=== PATIENT | female | born 1965 | race Caucasian/White ===

== ENCOUNTER → 2019-06-17 | Outpatient (REF) | payer OTHER ==
[2019-06-20 14:10] LABS: HPV HYBRID CAPTURE II Negative (Negative)
== END ==
LOC: M LAB LCGH 11:54
PROVIDERS: ATTEND Physician Assistant
DX: Z12.4 Encounter for screening for malignant neoplasm of cervix (principal)

== ENCOUNTER → 2019-09-20 | Outpatient (REF) | payer OTHER | LOC: M LAB LCGH 15:27 | PROVIDERS: ATTEND Surgery | DX: Z01.818 Encounter for other preprocedural examination (principal); L98.499 Non-pressure chronic ulcer of skin of other sites with unspecified severity; L02.91 Cutaneous abscess, unspecified; S60.851A Superficial foreign body of right wrist, initial encounter; X58.XXXA Exposure to other specified factors, initial encounter; Y92.9 Unspecified place or not applicable; Y93.9 Activity, unspecified; Y99.9 Unspecified external cause status ==

== ENCOUNTER → 2021-08-21 | Outpatient (CLI) | payer OTHER ==
[~2021-08-21] MED LIST: LISI2.5T9 PO
== END ==
LOC: M LABSMTC 11:42
PROVIDERS: ATTEND Anesthesiology
DX: Z01.812 Encounter for preprocedural laboratory examination (principal); Z20.822 Contact with and (suspected) exposure to COVID-19

== ENCOUNTER 2021-08-26 11:47 | Day surgery (SDC) | payer OTHER ==
[~2021-08-26] VITALS: Ht 152.4 cm; Wt 57.2 kg
[~2021-08-26 11:47] MED LIST changes: +NS 1,000 ML IV ONE
--- OUTSIDE RECORDS SUMMARY | 2021-08-26 11:58 | CCD ---
Author Author [facility] Organization [facility] Address Unknown Phone Unavailable Care Team Providers Care Mixing Picker Tender Name Role Phone Fede Pineda MD Unavailable Unavailable Fede Pineda MD Unavailable Unavailable Fede Pineda MD Unavailable Unavailable Fede Pineda MD Unavailable Unavailable Fede Pineda MD Unavailable Unavailable Fede Pineda MD Unavailable Unavailable Fede Pineda MD Unavailable Unavailable Fede Pineda MD Unavailable Unavailable Fede Pineda MD Unavailable Unavailable Fede Pineda MD Unavailable Unavailable Fede Pineda MD Unavailable Unavailable Fede Pineda MD Unavailable Unavailable Fede Pineda MD Unavailable Unavailable Fede Pienda MD Unavailable Unavailable Fede Pineda MD Unavailable Unavailable Fede Pineda MD Unavailable Unavailable Fede Pineda MD Unavailable Unavailable Fede Pineda MD Unavailable Unavailable Fede Pineda MD Unavailable Unavailable Fede Pineda MD Unavailable Unavailable Fede Pineda MD Unavailable Unavailable Padalino, Fede Miranda MD Unavailable Unavailable Padalino, Fede Miranda MD Unavailable Unavailable Padalino, Fede Miranda MD Unavailable Unavailable Padalino, Fede Miranda MD Unavailable Unavailable Padalino, Fede Miranda MD Unavailable Unavailable Padalino, Fede Miranda MD Unavailable Unavailable Padalino, Fede Miranda MD Unavailable Unavailable Padalino, Fede Miranda MD Unavailable Unavailable Padalino, Fede Miranda MD Unavailable Unavailable Padalino, Fede Miranda MD Unavailable Unavailable Padalino, Fede Miranda MD Unavailable Unavailable Padalino, Fede Miranda MD Unavailable Unavailable Padalino, Fede Miranda MD Unavailable Unavailable Padalino, Fede Miranda MD Unavailable Unavailable Padalino, Fede Miranda MD Unavailable Unavailable Padalino, Fede Miranda MD Unavailable Unavailable Padalino, Fede Miranda MD Unavailable Unavailable Padalino, Fede Miranda MD Unavailable Unavailable Padalino, Fede Miranda MD Unavailable Unavailable Padalino, Fede Miranda MD Unavailable Unavailable Padalino, Fede Miranda MD Unavailable Unavailable Padalino, Fede Miranda MD Unavailable Unavailable Padalino, Fede Miranda MD Unavailable Unavailable Padalino, Fede Miranda MD Unavailable Unavailable Padalino, Fede Miranda MD Unavailable Unavailable Padalino, Fede Miranda MD Unavailable Unavailable Padalino, Fede Miranda MD Unavailable Unavailable Padalino, Fede Miranda MD Unavailable Unavailable Padalino, Fede Miranda MD Unavailable Unavailable Padalino, Fede Miranda MD Unavailable Unavailable Padalino, Fede Miranda MD Unavailable Unavailable Padalino, Fede Miranda MD Unavailable Unavailable Padalino, Fede Miranda MD Unavailable Unavailable Padalino, Fede Miranda MD Unavailable Unavailable Padalino, Fede Miranda MD Unavailable Unavailable Padalino, Fede Miranda MD Unavailable Unavailable Padalino, Fede Miranda MD Unavailable Unavailable Padalino, Fede Miranda MD Unavailable Unavailable Padalino, Fede Miranda MD Unavailable Unavailable Padalino, Fede Miranda MD Unavailable Unavailable Padalino, Fede Miranda MD Unavailable Unavailable Padalino, Fede Miranda MD Unavailable Unavailable Padalino, Fede Miranda MD Unavailable Unavailable Padalino, Fede Miranda MD Unavailable Unavailable Padalino, Fede Miranda MD Unavailable Unavailable Padalino, Fede Miranda MD Unavailable Unavailable Padalino, Fede Miranda MD Unavailable Unavailable Padalino, Fede Miranda MD Unavailable Unavailable Padalino, Fede Miranda MD Unavailable Unavailable Padalino, Fede Miranda MD Unavailable Unavailable Padalino, Fede Miranda MD Unavailable Unavailable Padalino, Fede Miranda MD Unavailable Unavailable Padalino, Fede Miranda MD Unavailable Unavailable Padalino, Fede Miranda MD Unavailable Unavailable Padalino, Fede Miranda MD Unavailable Unavailable Padalino, Fede Miranda MD Unavailable Unavailable Padalino, Fede Ruben MD Unavailable Unavailable Diggs, Tatiana PA Unavailable Unavailable Diggs, Tatiana PA Unavailable Unavailable Diggs, Tatiana PA Unavailable Unavailable Diggs, Tatiana PA Unavailable Unavailable Diggs, Tatiana PA Unavailable Unavailable Diggs, Tatiana PA Unavailable Unavailable Diggs, Tatiana PA Unavailable Unavailable Diggs, Tatiana PA Unavailable Unavailable Diggs, Tatiana PA Unavailable Unavailable Diggs, Tatiana PA Unavailable Unavailable Diggs, Tatiana PA Unavailable Unavailable Diggs, Tatiana PA Unavailable Unavailable Diggs, Tatiana PA Unavailable Unavailable Diggs, Tatiana PA Unavailable Unavailable Diggs, Tatiana PA Unavailable Unavailable Diggs, Tatiana PA Unavailable Unavailable Diggs, Tatiana PA Unavailable Unavailable Diggs, Tatiana PA Unavailable Unavailable Diggs, Tatiana PA Unavailable Unavailable Diggs, Tatiana PA Unavailable Unavailable Diggs, Tatiana PA Unavailable Unavailable Diggs, Tatiana PA Unavailable Unavailable Diggs, Tatiana PA Unavailable Unavailable Diggs, Tatiana PA Unavailable Unavailable Diggs, Tatiana PA Unavailable Unavailable Diggs, Tatiana PA Unavailable Unavailable Diggs, Tatiana PA Unavailable Unavailable Diggs, Tatiana PA Unavailable Unavailable Diggs, Tatiana PA Unavailable Unavailable Diggs, Tatiana PA Unavailable Unavailable Diggs, Tatiana PA Unavailable Unavailable Diggs, Tatiana PA Unavailable Unavailable Diggs, Tatiana PA Unavailable Unavailable Diggs, Tatiana PA Unavailable Unavailable Diggs, Tatiana PA Unavailable Unavailable Diggs, Tatiana PA Unavailable Unavailable Diggs, Tatiana PA Unavailable Unavailable Diggs, Tatiana PA Unavailable Unavailable Diggs, Tatiana PA Unavailable Unavailable Diggs, Tatiana PA Unavailable Unavailable Diggs, Tatiana PA Unavailable Unavailable Gilberto Alegria MD Unavailable Unavailable Gilberto Alegria MD Unavailable Unavailable Gilberto Alegria MD Unavailable Unavailable Gilberto Alegria MD Unavailable Unavailable Gilberto Alegria MD Unavailable Unavailable Gilberto Alegria MD Unavailable Unavailable Gilberto Alegria MD Unavailable Unavailable Gilberto Alegria MD Unavailable Unavailable Gilberto Alegria MD Unavailable Unavailable Gilberto Alegria MD Unavailable Unavailable Gilberto Alegria MD Unavailable Unavailable Gilberto Alegria MD Unavailable Unavailable Gilberto Alegria MD Unavailable Unavailable Gilberto Alegria MD Unavailable Unavailable Gilberto Alegria MD Unavailable Unavailable Airam, E Ca MD Unavailable Unavailable Airam, E Ca MD Unavailable Unavailable Airam, E Ca MD Unavailable Unavailable Airam, E Ca MD Unavailable Unavailable Airam, E Ca MD Unavailable Unavailable Airam, E Ca MD Unavailable Unavailable Airam, E Ca MD Unavailable Unavailable Airam, E Ca MD Unavailable Unavailable Airam, E Ca MD Unavailable Unavailable Airam, E Ca MD Unavailable Unavailable Airam, E Ca MD Unavailable Unavailable Airam, E Ca MD Unavailable Unavailable Airam, E Ca MD Unavailable Unavailable Airam, E Ca MD Unavailable Unavailable Airam, E Ca MD Unavailable Unavailable Airam, E Ca MD Unavailable Unavailable Airam, E Ca MD Unavailable Unavailable Airam, E Ca MD Unavailable Unavailable Airam, E Ca MD Unavailable Unavailable Airam, E Ca MD Unavailable Unavailable Airam, E Ca MD Unavailable Unavailable Airam, E Ca MD Unavailable Unavailable Airam, E Ca MD Unavailable Unavailable Airam, E Ca MD Unavailable Unavailable Airam, E Ca MD Unavailable Unavailable Airam, E Ac MD Unavailable Unavailable Airam, E Ca MD Unavailable Unavailable Airam, E Ca MD Unavailable Unavailable Airam, E Ca MD Unavailable Unavailable Airam, E Ca MD Unavailable Unavailable Airam, E Ca MD Unavailable Unavailable Airam, E Ca MD Unavailable Unavailable Airam, E Ca MD Unavailable Unavailable Airam, E Ca MD Unavailable Unavailable Airam, E Ca MD Unavailable Unavailable Airam, E Ca MD Unavailable Unavailable Airam, E Ca MD Unavailable Unavailable Airam, E Ca MD Unavailable Unavailable Airam, E Ca MD Unavailable Unavailable Airam, E Ca MD Unavailable Unavailable Diggs, Tatiana PA Unavailable Unavailable Diggs, Tatiana PA Unavailable Unavailable Diggs, Tatiana PA Unavailable Unavailable Diggs, Tatiana PA Unavailable Unavailable Diggs, Tatiana PA Unavailable Unavailable Diggs, Tatiana PA Unavailable Unavailable Diggs, Tatiana PA Unavailable Unavailable Diggs, Tatiana PA Unavailable Unavailable Diggs, Tatiana PA Unavailable Unavailable Diggs, Tatiana PA Unavailable Unavailable Diggs, Tatiana PA Unavailable Unavailable Diggs, Tatiana PA Unavailable Unavailable Diggs, Tatiana PA Unavailable Unavailable Diggs, Tatiana PA Unavailable Unavailable Diggs, Tatiana PA Unavailable Unavailable Diggs, Tatiana PA Unavailable Unavailable Diggs, Tatiana PA Unavailable Unavailable Diggs, Tatiana PA Unavailable Unavailable Diggs, Tatiana PA Unavailable Unavailable Diggs, Tatiana PA Unavailable Unavailable Diggs, Tatiana PA Unavailable Unavailable Diggs, Tatiana PA Unavailable Unavailable Diggs, Tatiana PA Unavailable Unavailable Diggs, Tatiana PA Unavailable Unavailable Diggs, Tatiana PA Unavailable Unavailable Diggs, Tatiana PA Unavailable Unavailable Diggs, Tatiana PA Unavailable Unavailable Diggs, Tatiana PA Unavailable Unavailable Diggs, Tatiana PA Unavailable Unavailable Diggs, Tatiana PA Unavailable Unavailable Diggs, Tatiana PA Unavailable Unavailable Diggs, Tatiana PA Unavailable Unavailable Diggs, Tatiana PA Unavailable Unavailable Diggs, Tatiana PA Unavailable Unavailable Diggs, Tatiana PA Unavailable Unavailable Diggs, Tatiana PA Unavailable Unavailable Diggs, Tatiana PA Unavailable Unavailable Diggs, Tatiana PA Unavailable Unavailable Diggs, Tatiana PA Unavailable Unavailable Diggs, Tatiana PA Unavailable Unavailable Diggs, Tatiana PA Unavailable Unavailable Padalino, Fede Miranda MD Unavailable Unavailable Padalino, Fede Miranda MD Unavailable Unavailable Padalino, Fede Miranda MD Unavailable Unavailable Padalino, Fede Miranda MD Unavailable Unavailable Padalino, Fede Miranda MD Unavailable Unavailable Padalino, Fede Miranda MD Unavailable Unavailable Padalino, Fede Miranda MD Unavailable Unavailable Padalino, Fede Miranda MD Unavailable Unavailable Padalino, Fede Miranda MD Unavailable Unavailable Padalino, Fede Miranda MD Unavailable Unavailable Padalino, Fede Miranda MD Unavailable Unavailable Padalino, Fede Miranda MD Unavailable Unavailable Padalino, Fede Miranda MD Unavailable Unavailable Padalino, Fede Miranda MD Unavailable Unavailable Padalino, Fede Miranda MD Unavailable Unavailable Padalino, Fede Miranda MD Unavailable Unavailable Padalino, Fede Miranda MD Unavailable Unavailable Padalino, Fede Miranda MD Unavailable Unavailable Padalino, Fede Miranda MD Unavailable Unavailable Padalino, Fede Miranda MD Unavailable Unavailable Padalino, Fede Miranda MD Unavailable Unavailable Padalino, Fede Miranda MD Unavailable Unavailable Padalino, Fede Miranda MD Unavailable Unavailable Padalino, Fede Miranda MD Unavailable Unavailable Padalino, Fede Miranda MD Unavailable Unavailable Padalino, Fede Miranda MD Unavailable Unavailable Padalino, Fede Miranda MD Unavailable Unavailable Padalino, Fede Miranda MD Unavailable Unavailable Padalino, Fede Miranda MD Unavailable Unavailable Padalino, Fede Miranda MD Unavailable Unavailable Padalino, Fede Miranda MD Unavailable Unavailable Padalino, Fede Miranda MD Unavailable Unavailable Padalino, Fede Miranda MD Unavailable Unavailable Padalino, Fede Miranda MD Unavailable Unavailable Padalino, Fede Miranda MD Unavailable Unavailable Padalino, Fede Miranda MD Unavailable Unavailable Padalino, Fede Miranda MD Unavailable Unavailable Padalino, Fede Miranda MD Unavailable Unavailable Padalino, Fede Miranda MD Unavailable Unavailable Padalino, Fede Miranda MD Unavailable Unavailable Padalino, Fede Miranda MD Unavailable Unavailable Padalino, Fede Miranda MD Unavailable Unavailable Padalino, Fede Miranda MD Unavailable Unavailable Padalino, Fede Miranda MD Unavailable Unavailable Padalino, Fede Miranda MD Unavailable Unavailable Padalino, Fede Miranda MD Unavailable Unavailable Padalino, Fede Miranda MD Unavailable Unavailable Padalino, Fede Miranda MD Unavailable Unavailable Padalino, Fede Miranda MD Unavailable Unavailable Padalino, Fede Miranda MD Unavailable Unavailable Padalino, Fede Miranda MD Unavailable Unavailable Padalino, Fede Miranda MD Unavailable Unavailable Padalino, Fede Miranda MD Unavailable Unavailable Padalino, Fede Miranda MD Unavailable Unavailable Padalino, Fede Miranda MD Unavailable Unavailable Padalino, Fede Miranda MD Unavailable Unavailable Padalino, Fede Miranda MD Unavailable Unavailable Padalino, Fede Miranda MD Unavailable Unavailable Padalino, Fede Miranda MD Unavailable Unavailable Padalino, Fede Miranda MD Unavailable Unavailable Padalino, Fede Miranda MD Unavailable Unavailable Padalino, Fede Miranda MD Unavailable Unavailable Padalino, Fede Miranda MD Unavailable Unavailable Padalino, Fede Miranda MD Unavailable Unavailable Padalino, Fede Miranda MD Unavailable Unavailable Padalino, Fede Miranda MD Unavailable Unavailable Padalino, Fede Miranda MD Unavailable Unavailable Padalino, Fede Miranda MD Unavailable Unavailable Padalino, Fede Miranda MD Unavailable Unavailable Padalino, Fede Miranda MD Unavailable Unavailable Padalino, Fede Miranda MD Unavailable Unavailable Padalino, Fede Miranda MD Unavailable Unavailable Padalino, Fede Miranda MD Unavailable Unavailable Padalino, Fede Miranda MD Unavailable Unavailable Padalino, Fede Miranda MD Unavailable Unavailable Padalino, Fede Miranda MD Unavailable Unavailable Padalino, Fede Miranda MD Unavailable Unavailable Padalino, Fede Miranda MD Unavailable Unavailable STACEY, 0000{ Unavailable Unavailable ANTON Bell Unavailable Unavailable Re-disclosure Warning The records that you are about to access may contain information from federally-assisted alcohol or drug abuse programs. If such information is present, then the following federally mandated warning applies: This information has been disclosed to you from records protected by federal confidentiality rules (42 CFR part 2). The federal rules prohibit you from making any further disclosure of this information unless further disclosure is expressly permitted by the written consent of the person to whom it pertains or as otherwise permitted by 42 CFR part 2. A general authorization for the release of medical or other information is NOT sufficient for this purpose. The Federal rules restrict any use of the information to criminally investigate or prosecute any alcohol or drug abuse patient.The records that you are about to access may contain highly sensitive health information, the redisclosure of which is protected by Article 27-F of the [facility] Public Health law. If you continue you may have access to information: Regarding HIV / AIDS; Provided by facilities licensed or operated by the [facility] Office of Mental Health; or Provided by the [facility] Office for People With Developmental Disabilities. If such information is present, then the following [facility] mandated warning applies: This information has been disclosed to you from confidential records which are protected by state law. State law prohibits you from making any further disclosure of this information without the specific written consent of the person to whom it pertains, or as otherwise permitted by law. Any unauthorized further disclosure in violation of state law may result in a fine or shelter sentence or both. A general authorization for the release of medical or other information is NOT sufficient authorization for further disc losure. Allergies and Adverse Reactions Type Description Substance Reaction Status Data Source(s ) Allergy to substance No Known Allergies No known allergies (situation ) [place] ([facility]) Family History Family Member Name Family Member Gender Family Member Status Date o f Status Description Data Source(s) Unknown Unknown Problem [facility] ([facility]) Unknown Female Problem [facility] ([facility] ) Encounters Encounter Providers Location Date Indications Data Source(s ) Outpatient Attender: Tatiana MUNGUIA 08/03/2021 02: 56:00 PM EDT SCREENING; DENSE TISSUE C Z12.31 [facility] SCREENING; DENSE TISSUE C Z12.31 Outpatient Attender: Tatiana MUNGUIA 06/28/2021 03:00:00 PM EDT [facility] Outpatient Attender: Tatiana MUNGUIA 06/21/2021 03: 50:00 PM EDT PAIN IN LT SHOULDER [facility] PAIN IN LT SHOULDER <td ID="encounterTypeDescriptionID0">OLE UAL PE-followup exam/</td><td>Tatiana Diggs [facility]</td><td>[facility]</td><td>06/21/2021</td><td>2:40PM</td><td>3:38PM</td><td><content ID="encounterDiagnosisID0-0">Essential Hypertension</content>, <content ID="encounterDiagnosisID0-1">Routine History and Physical Adult (18 - 64 Yrs)</content>, <content ID="encounterDiagnosisID0-2">Perimenopause</content>, <content ID="encounterDiagnosisID0-3">Shoulder Strain Deltoid Muscle</content></td>Outpatient Attender: Tatiana Diggs [facility], [facility] 06/21/2021 02:40:00 PM EDT - 06/21/2021 03:38:00 PM ED T Shoulder Strain Deltoid MusclePerimenopauseRoutine History and Physical Adult (18 - 64 Yrs)Essential Hypertension [place] ([facility]) Shoulder Strain Deltoid Muscle Perimenopause Routine History and Physical Adult (18 - 64 Yrs) Essential Hypertension Outpatient<td ID="encounterTypeDescripti onID1">sick visit</td><td>Ca Alegria MD</td><td>[facility]</td><td>11/02/2020</td><td>3:43PM</td><td>4:23PM</td><td><content ID="encounterDiagnosisID1-0">Mycoplasma Pneumoniae (Primary Atypical)</content></td> Attender: Ca Alegria MD [facility] 11/02/2020 03:43:00 PM EST - 11/02/2020 04:23:00 PM ES T Mycoplasma Pneumoniae (Primary Atypical) [place] ([facility]) Mycoplasma Pneumoniae (Primary Atypical) Outpatient Attender: Ruben Pineda MD [facility] 09/22/2020 02:00:00 PM EST [facility] ([facility]) Outpatient Attender: 0000{ STACEY 09/22/2020 01:42:00 PM E [facility] Outpatient Attender: Ruben Pineda MD 09/22/2020 01 :42:00 PM EST CEREBRAL ANEURYSM, NONRUPTURED [facility] CEREBRAL ANEURYSM, NONRUPTURED Outpatient Attender: Tatiana BHATttender: Naz shaffer 07/10/2020 02:19:00 PM EDT SCREENING DENSE [facility] SCREENING DENSE Medications Medication Brand Name Start Date Product Form Dose Route Admi nistrative Instructions Pharmacy Instructions Status Indications Reaction Description Data Source(s) 2.5 mg 05/04/2021 12:00:00 AM EDT tablet 30 TAKE ONE TABLET BY MOUTH EVERY DAY TAKE ONE TABLET BY MOUTH EVERY DAY SOLD: 08/16/2021 [facility] 2.5 mg 05/04/2021 12:00:00 AM EDT tablet 30 TAKE ONE TABLET BY MOUTH EVERY DAY TAKE ONE TABLET BY MOUTH EVERY DAY SOLD: 05/10/2021 [facility] 2.5 mg 05/04/2021 12:00:00 AM EDT tablet 30 TAKE ONE TABLET BY MOUTH EVERY DAY TAKE ONE TABLET BY MOUTH EVERY DAY SOLD: 07/12/2021 [facility] 2.5 mg 05/04/2021 12:00:00 AM EDT tablet 30 TAKE ONE TABLET BY MOUTH EVERY DAY TAKE ONE TABLET BY MOUTH EVERY DAY SOLD: 06/09/2021 [facility] Lisinopril 2.5 MG Oral Tablet Lisinopril 2.5 MG Oral Tablet 05/03/2021 12:00:00 AM EDT 1 active lisinopril 2.5 MG Oral Tablet [place] [facility] Azithromycin 250 MG Oral Tablet Azithromycin 250 MG Oral Tab let 11/02/2020 12:00:00 AM EST completed azith romycin 250 MG Oral Tablet [place] [facility] 250 mg 11/02/2020 12:00:00 AM EST tablet 6 TAKE TWO TABLETS BY MOUTH AT ONCE ON THE FIRST DAY THEN TAKE ONE DAILY THEREAFTER TAKE TWO TABLETS BY MOUTH AT ONCE ON THE FIRST DAY THEN TAKE ONE DAILY THEREAFTER SOLD: 11/02/2020 [facility] Lisinopril 2.5 MG Oral Tablet Lisinopril 2.5 MG Oral Tablet 10/23/2020 12:00:00 AM EST 1 aborted lisinopril 2.5 M G Oral Tablet [place] ([facility]) 2.5 mg 10/23/2020 12:00:00 AM EST tablet 30 TAKE ONE TABLET BY MOUTH EVERY DAY TAKE ONE TABLET BY MOUTH EVERY DAY SOLD: 04/06/2021 [facility] 2.5 mg 10/23/2020 12:00:00 AM EST tablet 30 TAKE ONE TABLET BY MOUTH EVERY DAY TAKE ONE TABLET BY MOUTH EVERY DAY SOLD: 03/09/2021 [facility] 2.5 mg 10/23/2020 12:00:00 AM EST tablet 30 TAKE ONE TABLET BY MOUTH EVERY DAY TAKE ONE TABLET BY MOUTH EVERY DAY SOLD: 01/02/2021 [facility] 2.5 mg 10/23/2020 12:00:00 AM EST tablet 30 TAKE ONE TABLET BY MOUTH EVERY DAY TAKE ONE TABLET BY MOUTH EVERY DAY SOLD: 11/30/2020 [facility] 2.5 mg 10/23/2020 12:00:00 AM EST tablet 30 TAKE ONE TABLET BY MOUTH EVERY DAY TAKE ONE TABLET BY MOUTH EVERY DAY SOLD: 10/27/2020 [facility] 2.5 mg 10/23/2020 12:00:00 AM EST tablet 30 TAKE ONE TABLET BY MOUTH EVERY DAY TAKE ONE TABLET BY MOUTH EVERY DAY SOLD: 02/04/2021 [facility] Lisinopril 2.5 MG Oral Tablet Lisinopril 2.5 MG Oral Tablet 04/15/2020 12:00:00 AM EDT 1 aborted lisinopril 2.5 M G Oral Tablet [place] ([facility]) 2.5 mg 04/15/2020 12:00:00 AM EDT tablet 30 TAKE ONE TABLET BY MOUTH EVERY DAY TAKE ONE TABLET BY MOUTH EVERY DAY SOLD: 07/21/2020 [facility] 2.5 mg 04/15/2020 12:00:00 AM EDT tablet 30 TAKE ONE TABLET BY MOUTH EVERY DAY TAKE ONE TABLET BY MOUTH EVERY DAY SOLD: 08/18/2020 [facility] 2.5 mg 04/15/2020 12:00:00 AM EDT tablet 30 TAKE ONE TABLET BY MOUTH EVERY DAY TAKE ONE TABLET BY MOUTH EVERY DAY SOLD: 09/26/2020 [facility] Insurance Providers Payer name Policy type / Coverage type Policy ID Covered constitution party ID Covered constitution party's relationship to lomeli Policy Lomeli Plan Information [employer] U [id number] Self [id number] TAWANDA I [id number] Self [id number] [place] [id number] S [id number] Commercial [id number] Self [id number] [employer] Commercial [id number] Self [id number] Self Pay Commercial [id number] Self [id number] UNAVAILABLE UNAVAILA BLE SELF PAY ONLY [id number] SP [id number] [id number]US [id number] SP [id number] [facility] O [id number] S [id number] [place] [id number] SP [id number] O [id number] S [id number] TAWANDA CARE HEA [id number] S [id number] Problems, Conditions, and Diagnoses No Information Surgeries/Procedures Procedure Description Date Indications Data Source(s) Venipuncture (routine) Venipuncture (routine) 07/20/2020 12:00:00 A M [facility] ([facility]) CBC CBC 07/20/2020 12:00:00 AM EDT [facility] ([facility]) CMP-Complete Metabolic Profile CMP-Complete Metabolic Profil e 07/20/2020 12:00:00 AM [facility] Fasting Lipid Profile Fasting Lipid Profile 07/20/2020 12:00:00 AM [facility] ([facility]) Free T4- Free Thryoxine Free T4- Free Thryoxine 07/20/2020 12:00: 00 AM [facility] ([facility]) TSH- Thyroid Stimulating Hormone TSH- Thyroid Stimulating Ho rmone 07/20/2020 12:00:00 AM EDT [place] ([facility]) Results ID Date Data Source [id number] 08/19/2021 12:48:00 PM EST Clinical Ente anthony Boateng Name Value Range Interpretation Code Description Data Arelis rce(s) Supporting Document(s) SARS-CoV-2 RT-PCR Pooled ID [id number] Cl [employer] [facility] SARS CoV-2 RT-PCR MONTSE Negative Negative [facility] [employer] Your result is "Negative". This means th e virus that causes COVID-19 was not found in your sample. A test result that says "Negative" for asample collected while a person has COVID-19 related symptoms usually means that COVID-19 did not cause your symptoms. There may be other causes of your symptoms that require treatment. It is also possible that this result is not correct (it could be a false negative). Followup with your healthcare provider to interpret and consider the test result together with all other aspects of your personal and medical history, such as symptoms, possible exposures, geographical location of places you have recently traveled, and other factors, in deciding how to care for you. It is important that you work with your healthcare provider to help you understand the next steps you should take. This test has been authorized only for the detection of RNA kjrvVKDS-FqM-5 virus and diagnosis of SARS-CoV-2 virus infection, not for any other viruses or pathogens. This test is only authorized for the duration of the declaration that circumstances exist justifying the authorization of the emergency use of in vitro diagnostic tests for detection of SARS-CoV-2 virus and/or diagnosis of SARS-CoV-2 virus infection under section 564(b)(1) of the Act, 21 U.S.C. section 360bbb-3(b)(1), unless the authorization is terminated or revoked sooner. We will continue to follow federal and state requirements for both notification of results and any confirmatory testing that is required by another agency. This test was developed and its performance characteristics determined by [employer] [facility]. It has notbeen cleared or approved by the U.S. Food and Drug Administration for diagnostic use. This test has been authorized by FDA under an EUA for use by authorized laboratories. Results should be used in conjunction with clinical findings, and should not form the sole basis for a diagnosis or treatment decision. ID Date Data Source [id number] 08/13/2021 07:14:00 AM EDT [facility] Name Value Range Interpretation Code Description Data Arelis rce(s) Supporting Document(s) VC SARS CoV-2 RT-PCR [facility] Negative Negative [facility] Your result is "Negative". This means th e virus that causes COVID-19 was not found in your sample. A test result that says "Negative" for asample collected while a person has COVID-19 related symptoms usually means that COVID-19 did not cause your symptoms. There may be other causes of your symptoms that require treatment. It is also possible that this result is not correct (it could be a false negative). Followup with your healthcare provider to interpret and consider the test result together with all other aspects of your personal and medical history, such as symptoms, possible exposures, geographical location of places you have recently traveled, and other factors, in deciding how to care for you. It is important that you work with your healthcare provider to help you understand the next steps you should take. This test has been authorized only for the detection of RNA ojrfWVPC-WiS-2 virus and diagnosis of SARS-CoV-2 virus infection, not for any other viruses or pathogens. This test is only authorized for the duration of the declaration that circumstances exist justifying the authorization of the emergency use of in vitro diagnostic tests for detection of SARS-CoV-2 virus and/or diagnosis of SARS-CoV-2 virus infection under section 564(b)(1) of the Act, 21 U.S.C. section 360bbb-3(b)(1), unless the authorization is terminated or revoked sooner. We will continue to follow federal and state requirements for both notification of results and any confirmatory testing that is required by another agency. This test was developed and its performance characteristics determined by [facility]. It has notbeen cleared or approved by the U.S. Food and Drug Administration for diagnostic use. This test has been authorized by FDA under an EUA for use by authorized laboratories. Results should be used in conjunction with clinical findings, and should not form the sole basis for a diagnosis or treatment decision. ID Date Data Source [id number] 08/09/2021 11:10:00 AM EDT [facility] Name Value Range Interpretation Code Description Data Arelis rce(s) Supporting Document(s) SARS-CoV-2 (COVID-19) N gene [Presence] in Respiratory specimen by LEIA with probe detection NEGATIVE [facility] This lab was ordered by [employer] [facility] a nd reported by [employer]. ID Date Data Source [id number] 08/03/2021 03:37:[address] [facility] [address] [place] [address] [phone] NAME SEX PT STATUS ACCOUNT NUMBER Anabel Coker REG REF [id number] ORDERING PHYSICIAN LOCATION MEDICAL RECORD NO. Tatiana Diggs MAMMO [id number] ATTENDING PHYSICIAN DATE OF DATE OF EXAM/TIME Ronan Man MD 1965 08/03/211533 TYPE / EXAM US Breast - Complete Bilat REASON FOR EXAM DENSE TISSUE BILATERAL ABVS 3D SCREENING ULTRASOUND CLINICAL HISTORY: [facility] DENSE TISSUE COMPARISON: July 10, 2020. FINDINGS: Heterogeneous fibroglandular background echotexture is seen. 2 cysts are identified. There is a 0.5cm cyst in the 4:00 position of the left breast, 3.2 cm from the nipple. In the right breast, 4.6 cm from the nipple, there is a oval-shaped 0.6 x 0.6 x 0.4 cm cyst. IMPRESSION: No sonographic evidence of malignancy. OVERALL FINAL ASSESSMENT OF FINDINGS BI-RADS 2 - Benign findings Reported By Hermelindo Yoon MD on 08/03/211536 Signed By Hermelindo Yoon MD on 08/03/211538 Date Time CC: Hermelindo Yoon M.D.; Ronan Man MD Techn: CARAI Trans Dt/Tm: Trans by: DT Prt Dt/Tm: 25: Total DLP = 0.00 mGy-cm : Total Radiation Dose = 0.0000 mSv Lifetime Dose: 0 mSv Name Value Range Interpretation Code Description Data Arelis rce(s) Supporting Document(s) ID Date Data Source [id number] 08/03/2021 03:33:[address] [facility] [address] [place] [address] [phone] NAME SEX PT STATUS ACCOUNT NUMBER Anabel Coker REG REF [id number] ORDERING PHYSICIAN LOCATION MEDICAL RECORD NO. Tatiana Diggs MAMMO [id number] ATTENDING PHYSICIAN DATE OF DATE OF EXAM/TIME Ronan Man MD 1965 08/03/211516 TYPE / EXAM 3D DIG MAMMO SCREEN BILAT REASON FOR EXAM SCREENING LAST CLINICAL BREAST EXAM: 06/2021 [age] YEAR RISK: 2.7% LIFETIME RISK: 17.6% FAMILY HISTORY OF BREAST CARCINOMA: Sister COMPARISON: July 10, 2020 and July 09, 2019. February 08, 2018 prior study is also reviewed. 2D bilateral digital mammogram in the CC and MLO projections was performed with supplemental 3D tomosynthesis of both breasts. FINDINGS: Craniocaudad and oblique lateral views of the breasts were obtained. The breasts are heterogeneously dense, which may obscure small masses. There is no dominant mass, suspicious clustered microcalcification or architectural distortion. There are stable nodular densiti es on theright unchanged. IMPRESSION: No mammographic evidence of malignancy. Yearly screening recommended. OVERALL FINAL ASSESSMENT OF FINDINGS BI-RADS 2 - Benign findings. OVERALL FINAL ASSESSMENT OF THE BREAST COMPOSITION Breast Density Classification: C Description: The breasts are heterogeneously dense, which may obscure small masses. Note: for findings of BIRADS 0, our office will contact the patient to arrange further mammographicand/or ultrasound imaging as needed. If MRI is recommended, this should be ordered and scheduled by the ordering provider's office. This mammogram was read with the assistance of [employer], an FDA-approved computer-aided detection system for mammography. Reported By Hermelindo Yoon MD on 08/03/211532 Signed By Hermelindo Yoon MD on 08/03/211535 Date Time CC: Hermelindo Yoon M.D.; Ronan Man MD Techn: BAKLE Trans Dt/Tm: Trans by: DT Prt Dt/Tm: 1025- 0014: Total DLP = 0.00 mGy-cm [id number]: Total Radiation Dose = 0.0000 mSv Lifetime Dose: 0 mSv Name Value Range Interpretation Code Description Data Arelis rce(s) Supporting Document(s) ID Date Data Source [id number] 06/28/2021 05:26:00 PM EDT [facility] Name Value Range Interpretation Code Description Data Arelis rce(s) Supporting Document(s) Leukocytes [#/volume] in Blood by Automated count 7.5 10*3/uL 4.45-10 .71 N [facility] Erythrocytes [#/volume] in Blood by Automated count 5.13 10*6/uL 4.20 -5.40 N [facility] Hemoglobin [Moles/volume] in Blood 15.5 g/dL 10.7-15.4 Above high n ormal [facility] Hematocrit [Volume Fraction] of Blood by Automated count 45.5 % 3 7-47 N [facility] Erythrocyte mean corpuscular volume [Ent itic volume] in Cord blood by Automated count 89 fL 80-96 N [facility] ital Erythrocyte mean corpuscular hemoglobin [Entitic mass] by Au tomated count 30 pg 27-31 N [facility] Erythrocyte mean corpuscular hemoglobin concentration [Mass/volume] in Cord blood 34 g/dL 33-37 N [facility] ital Erythrocyte distribution width [Entitic volume] by Automated count 12 % 11-15 N [facility] Platelets [#/volume] in Blood by Automated count 231 10*3/uL 130-472 N [facility] Platelet mean volume [Entitic volume] in Blood 11.7 fL 9.1-13.1 N [facility] Neutrophils/100 leukocytes in Blood by Automated count 61.9 % 41- 77 [facility] Neutrophils [#/volume] in Blood by Automated count 4.7 U 1.7-7.6 N [facility] Lymphocytes/100 leukocytes in Blood by Automated count 27.2 % 14- 46 N [facility] Lymphocytes [#/volume] in Blood by Automated count 2.1 U 0.6-4.6 N [facility] Monocytes/100 leukocytes in Blood by Automated count 8.4 % 4-12 N [facility] Monocytes [#/volume] in Blood by Automated count 0.6 U 0.2-1.2 N [facility] Eosinophils/100 leukocytes in Blood by Automated count 2.0 % 0-7 N [facility] Eosinophils [#/volume] in Blood by Automated count 0.2 U 0.0-0.5 N [facility] Basophils/100 leukocytes in Blood by Automated count 0.4 % 0.4-1 .3 N [facility] Basophils [#/volume] in Blood by Automated count 0.0 U 0.0-0.2 N [facility] NUCLEATED RED BLOOD CELL 0 % [facility] NUCLEATED RED BLOOD CELL# 0 U [facility] Immature granulocytes [Presence] in Blood by Automated count 0-2 N [facility] Immature granulocytes [#/volume] in Blood by Automated count 0.0 U 0-0.1 N [facility] Manual Differential panel - Blood NO [facility] ID Date Data Source [id number] 06/28/2021 05:43:00 PM EDT [facility] Name Value Range Interpretation Code Description Data Arelis rce(s) Supporting Document(s) Urea nitrogen [Mass/volume] in Serum or Plasma 14 mg/dL 9-23 N [facility] Sodium [Moles/volume] in Serum or Plasma 139 mmol/L 132-146 [facility] Potassium [Moles/volume] in Serum or Plasma 4.3 mmol/L 3.5-5.5 [facility] Chloride [Moles/volume] in Serum or Plasma 104 mmol/L 99-109 N [facility] Carbon dioxide, total [Moles/volume] in Serum or Plasma 31 mmol/L 20 -31 N [facility] Anion gap in Serum or Plasma 8 mmol/L 8-16 N [facility] Glucose [Mass/volume] in Serum or Plasma 77 mg/dL 74-106 N [facility] Creatinine 0.8 mg/dL 0.5-1.1 [facility] Glomerular filtration rate/1.73 sq M.pre dicted [Volume Rate/Area] in Serum or Plasma Greater Than 60 ABOVE 60 [facility] Alanine aminotransferase [Enzymatic acti vity/volume] in Serum or Plasma by With P-5'-P 23 U/L 10-49 N [facility] ital Aspartate aminotransferase [Enzymatic ac tivity/volume] in Serum or Plasma by With P-5'-P 23 U/L 0-33 N [facility] pital Alkaline phosphatase [Enzymatic activity/volume] in Serum or Plasma 64 U/L 45-129 N [facility] Calcium [Mass/volume] in Serum or Plasma 9.4 mg/dL 8.5-10.1 N [facility] Bilirubin.total [Mass/volume] in Serum or Plasma 1.1 mg/dL 0.3-1.2 N [facility] Albumin [Mass/volume] in Serum or Plasma by Bromocresol purple (BCP) dye binding method 4.1 g/dL 3.2-4.8 N [facility] ital Protein [Mass/volume] in Serum or Plasma 7.5 g/dL 5.7-8.2 [facility] ID Date Data Source [id number] 06/28/2021 05:52:00 PM EDT [facility] Name Value Range Interpretation Code Description Data Arelis rce(s) Supporting Document(s) Hemoglobin A1c [Mass/volume] in Blood 5.5 % 3.8-5.6 [facility] The following ranges may be u sed for interpretation of results: HGBA1C degree of glucose control: Greater than 8%: Action Suggested * Less than 7%: Goal of Diabetic Therapy Less than 5.6%: NormalFactors such as duration of diabetes, adherence to therapyand the age of the patient should also be considered inassessing the degree of blood glucose control.* High risk of developing watermelon inspector complications such asretinopathy, nephropathy, neuropathy, cardiopathy, etc. Some danger of hypoglycemic reaction in Type I diabetics.Some glucose intolerant individuals and "Sub Clinical"diabetics may demonstrate HGBA1C levels in this area. Glucose mean value [Moles/volume] in Blood Estimated f rom glycated hemoglobin 111 mg[facility] An A1C of 7% - the goal of diabetic ther apy - is equivalentto an EAG of 154 mg/dl. ID Date Data Source [id number] 06/28/2021 05:43:00 PM EDT [facility] Name Value Range Interpretation Code Description Data Arelis rce(s) Supporting Document(s) Triglycerides 71 mg/dL 0-150 [facility] Cholesterol 194 mg/dL 120-200 N [facility] HDL Cholesterol 69 mg/dL [facility] HDL Less than 40 mg/dL: Major risk for CHDHDL Greater than 59 mg/dL: Low risk for CHD LDL Cholesterol, Calc 111 mg/dL 0-100 Above high normal [facility] ID Date Data Source [id number] 06/21/2021 04:25:[address] [facility] [address] [place] [address] [phone] NAME SEX PT STATUS ACCOUNT NUMBER Anabel Coker REG REF [id number] ORDERING PHYSICIAN LOCATION MEDICAL RECORD NO. Tatiana Diggs RAD [id number] ATTENDING PHYSICIAN DATE OF DATE OF EXAM/TIME Tatiana Diggs 1965 06/21/211603 TYPE / EXAM Xray Shoulder complete LT REASON FOR EXAM PAIN IN LEFT SHOULDER CLINICAL HISTORY: GH PAIN IN LEFT SHOULDER TECHNIQUE: AP views in internal and external rotation, and scapular Y views were obtained. COMPARISON: None available. FINDINGS: There is no x-ray evidence of acute displaced shoulder fracture or glenohumeral dislocation. There is no significant glenohumeral and no significant acromioclavicular degenerative change. Soft tissues and visualized left lung field are unremarkable. IMPRESSION: Unremarkable left shoulder radiographs Reported By Ronan Haji MD on 06/21/211624 Signed By Ronan Haji MD on 06/21/211625 Date Time CC: Ronan Haji M.D.; Tatiana Diggs Techn: EBEBR Trans Dt/Tm: Trans by: DT Prt Dt/Tm: 52: Total DLP = 0.00 mGy-cm Fluoroscopy Time (in secs): Name Value Range Interpretation Code Description Data Arelis rce(s) Supporting Document(s) ID Date Data Source [id number] 11/02/2020 12:00:00 AM EST [place] ([facility]) Name Value Range Interpretation Code Description Data Arelis rce(s) Supporting Document(s) BinaxNow Negative Normal BinaxNow [facility] ([facility]) ID Date Data Source [id number] 11/02/2020 12:00:00 AM EST [facility] Name Value Range Interpretation Code Description Data Arelis rce(s) Supporting Document(s) SARS-CoV2 Rapid Antigen Negative [facility] This lab was ordered by [facility] and reported by [facility]. ID Date Data Source [id number] 09/22/2020 02:52:00 PM [facility] OF [facility]AM: 09/22/2020EXAM: MRA Head w ithout contrast INDICATION: Cerebral aneurysm, nonruptured TECHNIQUE: Three dimensional [id number]-[id number] MR angiography at the level of the [place] was performed. COMPARISON: Cerebral angiography 08/17/2018. MRA head 09/07/2017. 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 There is a shallow bulbous outpouching directed inferiorly from the left aspect of the anterior communicating artery at the level of the base of the coil pack, corresponding to the small residual neck seen on the prior cerebral angiogram. This is grossly unchanged given differences in technique. No new aneurysm is identified. The major intracranial vessels are patent without significant stenosis or occlusion. 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 Professional interpretation performed at [facility] .End of diagnostic report for accession: [id number] Interpreted: Lisa Abreu MDTranscribed: 09/22/2020 02:48 PMSigned: 09/22/2020 02:52 PM Lisa Abreu MD [facility] # [id number] BILL # [id number] 2MEM Name Value Range Interpretation Code Description Data Arelis rce(s) Supporting Document(s) ID Date Data Source [id number] 07/20/2020 08:07:00 AM EDT [place] ([facility]) Name Value Range Interpretation Code Description Data Arelis rce(s) Supporting Document(s) TSH 1.417 uIu/mL TSH [place] ([facility]) Note: Responsible Observer: AW ID Date Data Source [id number] 07/20/2020 08:07:00 AM EDT [place] ([facility]) Name Value Range Interpretation Code Description Data Arelis rce(s) Supporting Document(s) FREE T4 1.11 ng/dl FREE T4 [place] ([facility]) Note: Responsible Observer: AW ID Date Data Source [id number] 07/20/2020 08:07:00 AM EDT [place] ([facility]) Name Value Range Interpretation Code Description Data Arelis rce(s) Supporting Document(s) Cholesterol [Moles/volume] in Pericardial fluid 163 mg/dl Cholesterol [place] ([facility]) Note: Responsible Observer: KM Dir. LDL 101 mg/dl Dir. LDL [place] ([facility]) Note: Responsible Observer: KM HDL 54 mg/dl HDL [place] ([facility]) Note: Responsible Observer: KM Triglycerides 55 mg/dl Triglycerides [place] ([facility]) Note: Responsible Observer: KM ID Date Data Source [id number] 07/20/2020 08:07:00 AM EDT [place] ([facility]) Name Value Range Interpretation Code Description Data Arelis rce(s) Supporting Document(s) Alkaline Phos 63 IU/L Alkaline Phos [place] ([facility]) Note: Responsible Observer: KM Albumin [Mass/volume] in Blood by Bromocresol purple ( BCP) dye binding method 4.4 g/dl Albumin [place] ([facility]) Note: Responsible Observer: KM Urea nitrogen [Moles/volume] in Blood 15 mg/dl Urea Nitrogen [place] ([facility]) Note: Responsible Observer: KM ALT 12 IU/L ALT [place] ([facility]) Note: Responsible Observer: KM AST 15 IU/L AST [place] ([facility]) Note: Responsible Observer: KM CO2 24 mmol/L CO2 [place] ([facility]) Note: Responsible Observer: KM Chloride [Moles/volume] in Serum, Plasma or Blood 102 mmol/L Chloride [place] ([facility]) Note: Responsible Observer: KM Calcium [Moles/volume] in Urine collected for unspecified durati on 10.1 mg/dl Calcium [place] ([facility]) Note: Responsible Observer: KM Creatinine [Moles/volume] in Vitreous fluid 0.8 mg/dl Creatinine [place] ([facility]) Note: Responsible Observer: KM EGFR - Non AF AM > 60 N/A EGFR - Non AF AM [facility] ([facility]) Note: Responsible Observer: KM Glucose [Mass/volume] in Urine collected for unspecified duratio n 110 mg/dl Above high normal Glucose [place] ([facility]) Note: Responsible Observer: KM EGFR - AfricanAm > 60 N/A EGFR - AfricanAm [facility] Note: Responsible Observer: KM Sodium [Moles/volume] in Serum, Plasma or Blood 137 mmol/L Sodium [place] ([facility]) Note: Responsible Observer: KM Potassium [Mass/volume] in Blood 5.2 mmol/L Pot assium [place] ([facility]) Note: Responsible Observer: KM Total Bilirubin 1.1 mg/dl Total Bilirubin [facility] ([facility]) Note: Responsible Observer: KM Total Protein 6.5 g/dl Total Protein [place] ([facility]) Note: Responsible Observer: KM ID Date Data Source [id number] 07/20/2020 08:07:00 AM EDT [place] ([facility]) Name Value Range Interpretation Code Description Data Arelis rce(s) Supporting Document(s) GRAN% 63.5 % GRAN% [place] ([facility]) Note: Responsible Observer: KM GRAN# 3.0 /mm3 GRAN# [place] ([facility]) Note: Responsible Observer: KM HCT 44.8 % HCT [place] ([facility]) Note: Responsible Observer: KM HGB 15.7 g/dl HGB [place] ([facility]) Note: Responsible Observer: KM LY# 1.3 /mm3 LY# [place] ([facility]) Note: Responsible Observer: KM MCHC 35.1 G/DL Above high normal MCHC [place] ([facility]) Note: Responsible Observer: KM MCH 32.5 pg MCH [place] ([facility]) Note: Responsible Observer: KM LY% 27.6 % LY% [facility] ([facility]) Note: Responsible Observer: KM MCV 92.5 um3 MCV [place] ([facility]) Note: Responsible Observer: KM MID# 0.4 /mm3 MID# [facility] ([facility]) Note: Responsible Observer: KM MPV 12.3 um3 MPV [place] ([facility]) Note: Responsible Observer: KM PLT 208 /mm3 PLT [facility] ([facility]) Note: Responsible Observer: KM MID% 8.9 % Above high normal MID% [facility] ([facility]) Note: Responsible Observer: KM RDW 15.3 % Above high normal RDW [facility] ([facility]) Note: Responsible Observer: KM RBC 4.84 /mm3 RBC [place] ([facility]) Note: Responsible Observer: KM WBC 4.7 /mm3 WBC [place] ([facility]) Note: Responsible Observer: KM ID Date Data Source [id number] 07/13/2020 01:07:00 PM EDT [facility] [address] [place] [address] [phone] NAME SEX PT STATUS ACCOUNT NUMBER Anabel Coker REG REF [id number] ORDERING PHYSICIAN LOCATION MEDICAL RECORD NO. Naz [employer] Bell MAMMO [id number] ATTENDING PHYSICIAN DATE OF DATE OF EXAM/TIME Ronan Man MD 1965 07/10/201440 TYPE / EXAM 3D DIG MAMMO SCREEN BILAT REASON FOR EXAM SCREENING [address] [address] [phone] NAME SEX PT STATUS ACCOUNT NUMBER Anabel Coker REG REF [id number] ORDERING PHYSICIAN LOCATION MEDICAL RECORD NO. Naz ANTON Bell MAMMO [id number] ATTENDING PHYSICIAN DATE OF DATE OF EXAM/TIME Ronan Man MD 1965 07/10/20 / 1441 TYPE / EXAM 3D DIG MAMMO SCREEN BILAT REASON FOR EXAM SCREENING LAST CLINICAL BREAST EXAM: June 2020 [age]IVE YEAR RISK: 1.0% LIFETIME RISK: 7.7% FAMILY HISTORY OF BREAST CARCINOMA: None COMPARISON: 07/09/2019, 02/08/2018 2D bilateral digital mammogram in the CC and MLO projections was performed with supplemental 3D to mosynthesis of both breasts. FINDINGS: Craniocaudad and oblique lateral views of the breasts were obtained. The breasts are heterogeneously dense, which may obscure small masses. Waxing and waning partially marginated structures in the bilateral breasts compatible with the presence of breasts cysts are identified. There is no dominant mass, suspicious clustered microcalcification or architectural distortion. BILATERAL 3D ABVS ULTRASOUND OF THE BILATERAL BREASTS COMPARISON: None FINDINGS: No disturbing appearing cystic or solid mass involving either breast. Small benign-appearing cysts are seen in the breast bilaterally in their lateral aspects. IMPRESSION: No mammographic evidence of malignancy. Correlated automated breast ultrasound shows no disturbing appearing cystic or solid mass involving either breast. Recommendation: Yearly screening recommended. OVERALL FINAL ASSESSMENT OF FINDINGS BI-RADS 2 - Benign findings. OVERALL FINAL ASSESSMENT OF THE BREAST COMPOSITION Breast Density Classification: C Description: The breasts are heterogeneously dense, which may obscure small masses. Recommendation: Yearly screening recommended. This mammogram was read with the assistance of M-Emmanuel, an FDA-approved computer- aided detection sy stem for mammography. Reported By Shy Ortiz MD on 07/13/20 1307 Signed By Shy Ortiz MD on 07/13/20 1341 Date Time CC: Shy Ortiz MD; Ronan Man MD Techn: PELBU Trans Dt/Tm: Trans by: DT Prt Dt/Tm: : Total DLP = 0.00 mGy-cm : Total Radiation Dose = 0.0000 mSv Lifetime Dose: 0 mSv Reported By Shy Ortiz MD on 07/13/20 1307 Signed By Shy Ortiz MD on 07/15/20 1444 Date Time CC: Shy Ortiz MD; Ronan Man MD Techn: PELBU Trans Dt/Tm: Trans by: DT Prt Dt/Tm: [id number]: Total DLP = 0.00 mGy-cm [id number]: Total Radiation Dose = 0.0000 mSv Lifetime Dose: 0 mSv Name Value Range Interpretation Code Description Data Arelis rce(s) Supporting Document(s) ID Date Data Source [id number] 07/13/2020 01:07:00 PM EDT [address] [address] [phone] NAME SEX PT STATUS ACCOUNT NUMBER Anabel Coker REG REF [id number] ORDERING PHYSICIAN LOCATION MEDICAL RECORD NO. Naz ANTON Bell MAMMO [id number] ATTENDING PHYSICIAN DATE OF DATE OF EXAM/TIME Ronan Man MD 1965 07/10/201502 TYPE / EXAM US Breast - Complete Bilat REASON FOR EXAM DENSE [address] [id number] [phone] NAME SEX PT STATUS ACCOUNT NUMBER Anabel Coker REG REF [id number] ORDERING PHYSICIAN LOCATION MEDICAL RECORD NO. Naz ANTON Bell MAMMO [id number] ATTENDING PHYSICIAN DATE OF DATE OF EXAM/TIME Ronan Man MD 1965 07/10/20 1441 TYPE / EXAM 3D DIG MAMMO SCREEN BILAT REASON FOR EXAM SCREENING LAST CLINICAL BREAST EXAM: June 2020 FIVE YEAR RISK: 1.0% LIFETIME RISK: 7.7% FAMILY HISTORY OF BREAST CARCINOMA: None COMPARISON: 07/09/2019, 02/08/2018 2D bilateral digital mammogram in the CC and MLO projections was performed with supplemental 3D to mosynthesis of both breasts. FINDINGS: Craniocaudad and oblique lateral views of the breasts were obtained. The breasts are heterogeneously dense, which may obscure small masses. Waxing and waning partially marginated structures in the bilateral breasts compatible with the presence of breasts cysts are identified. There is no dominant mass, suspicious clustered microcalcification or architectural distortion. BILATERAL 3D ABVS ULTRASOUND OF THE BILATERAL BREASTS COMPARISON: None FINDINGS: No disturbing appearing cystic or solid mass involving either breast. Small benign-appearing cysts are seen in the breast bilaterally in their lateral aspects. IMPRESSION: No mammographic evidence of malignancy. Correlated automated breast ultrasound shows no disturbing appearing cystic or solid mass involving either breast. Recommendation: Yearly screening recommended. OVERALL FINAL ASSESSMENT OF FINDINGS BI-RADS 2 - Benign findings. OVERALL FINAL ASSESSMENT OF THE BREAST COMPOSITION Breast Density Classification: C Description: The breasts are heterogeneously dense, which may obscure small masses. Recommendation: Yearly screening recommended. This mammogram was read with the assistance of M-Emmanuel, an FDA-approved computer- aided detection sy stem for mammography. Reported By Shy Ortiz MD on 07/13/201306 Signed By Shy Ortiz MD on 07/13/20 1341 Date Time CC: Shy Ortiz MD; Ronan Man MD Techn: PELBU Trans Dt/Tm: Trans by: DT Prt Dt/Tm: : Total DLP = 0.00 mGy-cm : Total Radiation Dose = 0.0000 mSv Lifetime Dose: 0 mSv Reported By Shy Ortiz MD on 07/13/20 1307 Signed By Shy Ortiz MD on 07/15/20 1444 Date Time CC: Shy Ortiz MD; Ronan Man MD Techn: TABSA Trans Dt/Tm: Trans by: DT Prt Dt/Tm: [id number]: Total DLP = 0.00 mGy-cm : Total Radiation Dose = 0.0000 mSv Lifetime Dose: 0 mSv Name Value Range Interpretation Code Description Data Arelis rce(s) Supporting Document(s) Procedure Social History Code Duration Value Status Description Data Source(s ) Smoking 09/22/2020 12:00:00 AM EST Patient has never smoked co mpleted Patient has never smoked [facility] ([facility]) Vital Signs ID Date Data Source UNK Name Value Range Interpretation Code Description Data Source(s) [facility]stolic blood pressure 120 mm[Hg] 120 [facility]Hg[facility] Diastolic blood pressure 60 mm[Hg] 60 mm[Hg] [facility] ([facility]) Body temperature 98.8 [degF] 98.8 [degF] [facility] ([facility]) Body height 60 [in_i] 60 [in_i] [facility] ([facility]) 5'0" Body weight 133.00 [lb_av] 133.00 [lb_av] [facility] Body mass index (BMI) [Ratio] 26.0 kg/m2 26.0 k g/m2 [facility] ([facility]) [place] body weight 100 [lb_av] 100 [lb_av] [facility] Body weight 60.[address] [facility] ([facility]) Body surface area Derived from formula 1.[address] [facility] ([facility]) Systolic blood pressure 114 mm[Hg] 114 mm[Hg] [place] ([facility]) Diastolic blood pressure 76 mm[Hg] 76 mm[Hg] [place] ([facility]) Heart rate 60 /min 60 /min [place] ([facility]) Respiratory rate 20 /min 20 /min [place] ([facility]) Body height 60 [in_i] 60 [in_i] [place] ([facility]) Body weight 129 [lb_av] 129 [lb_av] [place] ([facility]) Body mass index (BMI) [Ratio] 25.2 kg/m2 25.2 k g/m2 [place] ([facility]) Body surface area Derived from formula 1.55 m2 1.55 m2 [place] ([facility]) Systolic blood pressure 132 mm[Hg] 132 mm[Hg] [place] ([facility]) Diastolic blood pressure 76 mm[Hg] 76 mm[Hg] [place] ([facility]) Heart rate 75 /min 75 /min [place] ([facility]) Respiratory rate 22 /min 22 /min [place] ([facility]) Body temperature 98.5 [degF] 98.5 [degF] [facility] ([facility]) Body height 60 [in_i] 60 [in_i] [place] ([facility]) Oxygen saturation in Arterial blood by Pulse oximetry 98 % 98 % [place] ([facility]) Body height 60 [in_i] 60 [in_i] [facility] ([facility]) 5'0" Body weight 126.00 [lb_av] 126.00 [lb_av] [facility] ([facility]) Diastolic blood pressure 83 mm[Hg] 83 mm[Hg] [facility] ([facility]) Body temperature 36.9 Lillian 36.9 Lillian [facility] ( [facility]) Body mass index (BMI) [Ratio] 24.6 kg/m2 24.6 k g/m2 [facility] ([facility]) Systolic blood pressure 143 mm[Hg] 143 mm[Hg] [facility] ([facility]) Heart rate 66 /min 66 /min [facility] ([facility]) Body temperature 98.4 [degF] 98.4 [degF] [facility] ([facility]) Patient Treatment Plan of Care Planned Activity Planned Date Details Description Data Source (s) Lisinopril 2.5 MG Oral Tablet 05/03/2021 12:00:00 AM EDT [place] ([facility]) Azithromycin 250 MG Oral Tablet 11/02/2020 12:00:00 AM EST [facility]) Lisinopril 2.5 MG Oral Tablet 10/23/2020 12:00:00 AM EST [place] ([facility]) Lisinopril 2.5 MG Oral Tablet 04/15/2020 12:00:00 AM [place] ([facility])
--- OUTSIDE RECORDS SUMMARY | 2021-08-26 11:58 | CCD | Continuity of Care Document ---
Author Author Anabel ISRAEL [place] Organization Unknown Address [address], [address] [place] [address] Phone [phone] Care Team Providers Care Template Clerk Name Role Phone Ca Dixon M.D. AUTM [phone] AUTM Unavailable Ronan Man M.D. [facility] [phone] Problems Active Problems Provider Date Essential hypertension William Sequeira M.D. Onset: 6 Social History Type Date Description Comments Sex Unknown ETOH Use Denies alcohol use Tobacco Use Start: Unknown Non Smoker Recreational Drug Use Denies Drug Use Allergies and adverse reactions Description No Known Drug Allergies Medications Active Medications SIG Qnty Indications Ordering Provide r Date Lisinopril 2.5mg Tablets reggie y Unknown Calcium 600 600mg Tablets riaz ry day Unknown Vitamin D 50mcg (2000 Ut) Tablets 1 by mouth every day Unknown Vitamin B Complex Tablets ev mednoza Unknown Biotin Maximum Strength 5000mcg Ca psules every day Unknown Zinc 50mg Tablets 1 by chani th every day Unknown L-Lysine 500mg Tablets every day Unknown QC Tumeric Complex 500mg Capsules 2 every day Unknown Multivitamin Tablets 1 by mouth every day Unknown Immunizations Description No Information Available Vital Signs Date Vital Result Comment 08/12/2021 1:58pm BP Systolic 120 mmHg BP Diastolic 60 mmHg Body Temperature 98.8 F Height 60 inches 5'0" Weight 133.00 lb BMI (Body Mass Index) 26.0 kg/m2 [place] Body Weight 100 lb Weight 60.329 kg BSA (Body Surface Area) 1.57 m2 07/27/2016 10:40am BP Systolic 110 mmHg BP Diastolic 60 mmHg Height 60 inches 5'0" Weight 122.00 lb BMI (Body Mass Index) 23.8 kg/m2 [place] Body Weight 100 lb Weight 55.339 kg BSA (Body Surface Area) 1.51 m2 Results Description No Information Available Procedures Description No Information Available Medical Devices Description No Information Available Encounters Description No Information Available Assessments Date Code Description Provider 08/12/2021 R85.89 Other abnormal findi ngs in specimens from digestive organs and abdominal cavity EZRA Bauer Plan of Treatment No Information Available Functional Status Description No Information Available Mental Status Description No Information Available Referrals Refer to Reason for Referral Status Appt Date Yung Zaidi M.D. COLONOSCOPY/POSITIVE COLOGUARD VANNA Schedule d 08/12/2021 [facility] General Surgery [address] [place] [id number] [phone]
--- OUTSIDE RECORDS SUMMARY | 2021-08-26 11:58 | CCD ---
Author Author [facility] Organization [facility] Address [address] [facility] [address] [place] [address] Phone Care Team Providers Care Call Worker Person Name Role Phone Tricia VENTURA, Ollie Reeves Unavailable Unavailable Donovan VENTURA, Ronan Gaines PP [phone] Caterina FERNANDEZ, Tatiana Martel Unavailable [phone] Nani VENTURA, Hari Matamoros Unavailable Unavailable Reason for Referral No Reason for Referral Recorded Problems Includes: Active, inactive, and resolved Problems All Visits Onset Date - Time Resolved Date - Time Provider Co ndition Status Varicose Veins 09/09/2014 - 12:00AM Tatiana Diggs RP A Active Note: left Essential Hypertension 11/15/2013 - 12:00AM Tatiana recio RPA Active Non-ulcer Dyspepsia 11/15/2013 - 12:00AM Yudy blanchard RPA Active Note: infrequent, pepcid prn Subarachnoid Hemorrhage 03/09/2012 - 12:00AM Tatiana alcantara [facility] 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 Abnormal Mammogram findings :Microcalcifiation of breast 011 - 12:00AM Yudy Rivera RPA Active Note: 12/17 mammo: 1.4 cm mas s, rec eval w/ MRI12/17 Sonogram: 1.3 X 0.6 X1.0 cm hypoechoic lesions 12:00, appearance consistent w/ fibroadenoma12/18, 12/19 mammos normal, ACR 2 (benign) Plan of Treatment Pending Tests Order Diagnosis Results Due Ordering Provi marisabel Outside Labs - Cologuard Cologuard Encounter for s creening for malignant neoplasm of colon 06/28/21 [facility] Xrays - X-Ray Orders Shoulder X-Ray Left Pain in left shoulder 07/09 12/27 [facility] Mammo/Dexa - Mammogram Mammogram Encntr screen shelly mogram for malignant neoplasm of breast 07/26/21 [facility] Referral - Physical Therapy Physical Therapy Pain in left shoulder 09/19/21 [facility] Future Appointments Date Time Location Provider ANNUAL PE-followup exam/06/22/2022 2:00PM Lonnie Yu, SMITHA [facility] Future Tests Order Diagnosis Results Due Ordering Provid er Lab A1C 07/21/21 [facility] Lab CBC 07/21/21 [facility] Lab CMP 07/21/21 [facility] Lab Lipid Panel 07/21/21 [facility] Findings Encounter Date Education and counseling ; Age and gende r specific counceling on preventative health discussed with the patient using USPTF and/or ACP guidelines on health maintenance and screening. Will update mammogram, fasting labs and cologuard. Due for pap 2022 at which point we can consider taking out of her paraguard and possible replacement. She would like to leave her paraguard in until she is menopausal. Referral to PT for shoulder complaints. Otherwise, will plan to see yearly or as needed in the interim ANNUAL PE-followup exam/30 with [facility] 06/21/2021 Education and counseling ; Age and gende r specific counceling on preventative health discussed with the patient using USPTF and/or ACP guidelines on health maintenance and screening. Will update mammogram and fasting labs. Otherwise, will plan to see yearly or as needed in the interim ANNUAL PE-followup exam/30 with [facility] 06/18/2020 Tylenol for discomfort or fever. Push fluids and rest. Encouraged her to use nasal saline and give symptoms a few more days. Will give an antibiotic incase as she will not be able to seek medical attention if worsening. She is agreeable. Advised to call if persistent or high fever, increased work of breathing, persistent pain, if sxs not improving, or if concerned sick visit with [facility] 11/22/2019 Education and counseling ; Age and gende r specific counceling on preventative health discussed with the patient using USPTF and/or ACP guidelines on health maintenance and screening. Pap obtained today. Mammogram soon. Fasting labs next year. Will plan to see yearly or as needed in the interim. Proper wound care reviewed with patient for thumb ANNUAL PE-followup exam/30 with [facility] 06/17/2019 Education and counseling ; Age and gende r specific counceling on preventative health discussed with the patient using USPTF and/or ACP guidelines on health maintenance and screening. Sees [facility] and is up to date with Pap & Mammogram screening. Agrees to cologuard today. Will refer to vascular surgeon for further evaluation regarding varcosity changes. See back yearly or as needed in the interim ANNUAL PE-followup exam/30 with [facility] Education and counseling ; age and gende r specific counceling on preventative health discussed with the patient using USPTF and/or ACP guidelines on health maintenance and screening. Patient follows with Naz Bell and is currently up to date with [employer] care. Per patient, she did stool cards earlier this year which were normal. Therefore, will plan to see yearly with fasting labs prior or as needed in the interim ANNUAL PE-followup exam/30 with [facility] 06/13/2017 Assessments Includes: Assessments for all patient encounters Findings Encounter Date Deltoid muscle strain ANNUAL PE-followup exam/30 with [facility] 06/21/2021 Essential hypertension which is well-controlled ANNUAL PE-followup exam/30 with [facility] 06/21/2021 Perimenopause ANNUAL PE-followup exam/30 with [facility] 06/21/2021 Routine adult history and physical (18 - 64 yrs) ANNUA L PE-followup exam/30 with [facility] 06/21/2021 Primary atypical Mycoplasma pneumoniae COVID negative in office today. Will treat with azithromycin [Pneumonia due to Mycoplasma pneumoniae] sick visit with Ca Alegria MD 11/02/2020 Essential hypertension which is well-controlled ANNUAL PE-followup exam/30 with [facility] 06/18/2020 Perimenopause ANNUAL PE-followup exam/30 with [facility] 06/18/2020 Routine adult history and physical (18 - 64 yrs) ANNUA L PE-followup exam/30 with [facility] 06/18/2020 Upper respiratory infection , viral in nature sick vis it with [facility] 11/22/2019 Foreign body of hand sick visit with [facility] 02/2019 Essential hypertension which is well-controlled ANNUAL PE-followup exam/30 with [facility] 06/17/2019 Routine adult history and physical (18 - 64 yrs) ANNUA L PE-followup exam/30 with [facility] 06/17/2019 Routine gynecological exam with cervical pap smear OLE UAL PE-followup exam/30 with [facility] 06/17/2019 Superficial foreign body of thumb ANNUAL PE-followup e xam/30 with [facility] 06/17/2019 Essential hypertension ANNUAL PE-followup exam/30 with [facility] 06/15/2018 Routine adult history and physical (18 - 64 yrs) ANNUA L PE-followup exam/30 with [facility] 06/15/2018 Varicose veins ; left ANNUAL PE-followup exam/30 with [facility] 06/15/2018 Essential hypertension ANNUAL PE-followup exam/30 with [facility] 06/13/2017 Routine adult history and physical (18 - 64 yrs) ANNUA L PE-followup exam/30 with [facility] 06/13/2017 Normal routine history and physical adult ANNUAL PE-fo llowup exam/30 with Elpidio Rivera MD 09/09/2014 Essential hypertension followup with Yudy Rivera [facility] 11/2013 Non-ulcer dyspepsia followup with Yudy Rivera [facility] 2013 Instructions Instructions not supported for this document typeNo Instructions Recorded Medical Equipment - Implanted Devices Includes: Current and historical DevicesNo Medical Equipment Recorded Medications Includes: Current and historical Medications Current Medications (continue as prescribed) Lisinopril 2.5 MG Oral Tablet 05/03/2021 Provider: Tatiana Diggs [facility] Diagnosis: 1 PO QD Iron Complex Oral Capsule 06/15/2018 Provider: Diagnosis: Calcium [id number] Oral Tablet Chewable 06/15/2018 Provider: Diagnosis: One Daily Multivitamin Adult Oral Tablet 06/15/2018 Provider: Diagnosis: Past Medications on file Azithromycin 250 MG Oral Tablet 11/02/2020 - 11/07/2020 Prov ider: Ca Alegria MD Diagnosis: as directed Take 2 tablets on day one, then one tablet q24h x 4 days Lisinopril 2.5 MG Oral Tablet 10/23/2020 - 05/03/2021 Provid er: Tatiana Diggs RPA Diagnosis: 1 PO QD Lisinopril 2.5 MG Oral Tablet 04/15/2020 - 10/23/2020 Provid er: Tatiana Diggs RPA Diagnosis: 1 PO QD Cefuroxime Axetil 500 MG Oral Tablet 11/22/2019 - 06/18/2020 Provider: Tatiana Diggs RPA Diagnosis: 1 PO BID Lisinopril 2.5MG Oral Tablet 09/26/2019 - 11/22/2019 Provide r: Tatiana Diggs RPA Diagnosis: 1 PO QD Lisinopril 2.5MG Oral Tablet 09/06/2018 - 06/17/2019 Provide r: Ronan Man MD Diagnosis: 1 PO QD Lisinopril 2.5 MG Tablet 06/13/2017 - 09/06/2018 Provider: Tatiana Diggs [facility] Diagnosis: 1 PO QD Lisinopril 2.5 MG OR TABS 11/06/2014 - 06/13/2017 Provider: Yudy Rivera [facility] Diagnosis: Lisinopril 2.5 MG OR TABS 04/22/2014 - 11/06/2014 Provider: Elpidio Rivera MD Diagnosis: Lisinopril 2.5 MG OR TABS 11/15/2013 - 04/22/2014 Provider: Diagnosis: Medications Administered Includes: Administered Medications in patient's chartNo Administered Medications Recorded Vital Signs Includes: Vital Signs from 06/21/2020 through 06/21/2021 Vital Name 06/21/2021 02:56P 11/02/2020 03:56P Blood Pressure Sitting (mmHg) 114/76 132/76 Pulse Rate-Sitting (bpm) 60 75 Respiration Rate (breaths/min) 20 22 Height (in) 60 60 Weight (lb) 129 Body Mass Index (kg/m2) 25.2 Body Surface Area (m2) 1.55 Temp-Oral (F) 98.5 Oxygen Saturation (%) 98 Results Includes: Results from 06/21/2020 through 06/21/2021 [facility] Ordered by Ca Alegria MD on 11/02/2020 [address] [place], [address] Collected: 11/02/2020 Reported: 11/02/2020 16:48 tel :[phone] [facility] Negative (Negative) N (Normal) Reviewed by Ca Alegria MD on 11/02; All test results are final unless otherwise noted. CBC [facility] Ordered by Tatiana Diggs RPA on 07/20/2020 [address] [place], [address] Collected: 07/20/2020 Reported: 07/21/2020 10:45 tel :[phone] ext. 1500 GRAN# 3.0 /mm3 (2.5-7.5) None Note: Responsible Observer: KM GRAN% 63.5 % (50.0-75.0) None Note: Responsible Observer: KM HCT 44.8 % (37-47) None Note: Responsible Observer: KM HGB 15.7 g/dl (12.0-17.4) None Note: Responsible Observer: KM LY# 1.3 /mm3 (1.3-4.0) None Note: Responsible Observer: KM LY% 27.6 % (25-40.0) None Note: Responsible Observer: KM MCH 32.5 pg (27.0-34.0) None Note: Responsible Observer: KM MCHC 35.1 G/DL (30.0-35.0) H (High) Note: Responsible Observer: KM MCV 92.5 um3 (76.0-94.0) None Note: Responsible Observer: KM MID# 0.4 /mm3 (0.1-0.7) None Note: Responsible Observer: KM MID% 8.9 % (3.0-7.0) H (High) Note: Responsible Observer: KM MPV 12.3 um3 (8.0-15.0) None Note: Responsible Observer: KM PLT 208 /mm3 (150-440) None Note: Responsible Observer: KM RBC 4.84 /mm3 (4.00-5.50) None Note: Responsible Observer: KM RDW 15.3 % (13.0-15.0) H (High) Note: Responsible Observer: KM WBC 4.7 /mm3 (4.0-10.0) None Note: Responsible Observer: KM Reviewed by Tatiana Diggs RPA on 07/21; All test results are final unless otherwise noted. CMP [facility] Ordered by Tatiana Diggs RPA on 07/20/2020 [address] [place], [address] Collected: 07/20/2020 Reported: 07/21/2020 10:45 tel :[phone] ext. 1500 Albumin 4.4 g/dl (3.4-5.0) None Note: Responsible Observer: KM Alkaline Phos 63 IU/L (39-117) None Note: Responsible Observer: KM ALT 12 IU/L (4-40) None Note: Responsible Observer: KM AST 15 IU/L (4-37) None Note: Responsible Observer: KM Urea Nitrogen 15 mg/dl (6-20) None Note: Responsible Observer: KM Calcium 10.1 mg/dl (8.4-10.2) None Note: Responsible Observer: KM Chloride 102 mmol/L (96-108) None Note: Responsible Observer: KM CO2 24 mmol/L (23-31) None Note: Responsible Observer: KM Creatinine 0.8 mg/dl (0.5-1.2) None Note: Responsible Observer: KM EGFR - AfricanAm > 60 N/A (-) None Note: Responsible Observer: KM EGFR - Non AF AM > 60 N/A (-) None Note: Responsible Observer: KM Glucose 110 mg/dl (70-105) H (High) Note: Responsible Observer: KM Potassium 5.2 mmol/L (3.2-5.4) None Note: Responsible Observer: KM Sodium 137 mmol/L (133-145) None Note: Responsible Observer: KM Total Bilirubin 1.1 mg/dl (0.0-1.2) None Note: Responsible Observer: KM Total Protein 6.5 g/dl (6.0-8.0) None Note: Responsible Observer: KM Reviewed by Tatiana Diggs RPA on 07/21; All test results are final unless otherwise noted. Lipid Panel [facility] Ordered by Tatiana Diggs RPA on 07/20/2020 [address] [place], [address] Collected: 07/20/2020 Reported: 07/21/2020 10:45 tel :[phone] ext. 1500 Cholesterol 163 mg/dl (135-200) None Note: Responsible Observer: KM Dir. LDL 101 mg/dl (50-150) None Note: Responsible Observer: KM HDL 54 mg/dl (35-55) None Note: Responsible Observer: KM Triglycerides 55 mg/dl (40-150) None Note: Responsible Observer: KM Reviewed by Tatiana Diggs RPA on 07/21; All test results are final unless otherwise noted. FREE T4 [facility] Ordered by Tatiana Diggs RPA on 07/20/2020 [address] [place], [address] Collected: 07/20/2020 Reported: 07/21/2020 10:45 tel :[phone] ext. 1500 FREE T4 1.11 ng/dl (0.75-1.54) None Note: Responsible Observer: AW Reviewed by Tatiana Diggs RPA on 07/21; All test results are final unless otherwise noted. TSH [facility] Ordered by Tatiana Diggs RPA on 07/20/2020 [address] [place], [address] Collected: 07/20/2020 Reported: 07/21/2020 10:45 tel :[phone] ext. 1500 TSH 1.417 uIu/mL (0.5-5.8) None Note: Responsible Observer: AW Reviewed by Tatiana Diggs RPA on 07/21; All test results are final unless otherwise noted. 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 07/20/2020 Free T4- Free Thryoxine 46904 Essential (primary) hyp ertension Tatiana [facility], [facility] 07/20/2020 Fasting Lipid Profile 62636 Essential (primary) hypert ension Tatiana Martel [facility] 07/20/2020 CMP-Complete Metabolic Profile 01582 Essential (primar y) hypertension Tatiana Martel [facility] 07/20/2020 CBC 91497 Essential (primary) hypertension Tatiana Martel [facility] 07/20/2020 Venipuncture (routine) 03609 Essential (primary) hyper tension Tatiana M [facility] 07/20/2020 Surgical History Last Updated History of endovascular intracranial aneurysm repair ; 201106/13/2017 History of cholecystectomy 201506/13/2017 Medical History Includes: Medical History in patient's chartNo Medical History Recorded Family History Includes: Family History in patient's chart Description Last Updated Father in good health 06/13/2017 Siblings 3 Brother & 3 Sisters; All well, Hypertensio n 06/13/2017 of diabetes 09/09/2014 Family history of cancer : mom of cancer at 41 of unknown primary 09/09/2014 Family history of heart disease : pgf mi in 50's 09/09 First cousins by mother's brother no. 1 breast cancer 03/10/2014 First cousins by mother's brother no. 2 breast cancer 03/10/2014 Mother age 41 (cancer)-esophagus (uncertain if primary cancer) 03/10/2014 Review of Systems Review of Systems not supported for this document typeNo Review of Systems Recorded Mental Status Mental Status not supported for this document type Description No anxiety Functional Status Functional Status not supported for this document typeNo Functional Status Recorded Physical Exam Physical Exam not supported for this document typeNo Physical Exam Recorded Immunizations Includes: Immunizations in patient's chart Vaccine Dose # Date Site Reaction(s) Status Source Tdap (> 7 yrs) 1 09/09/2014 Left Arm Complete (Admi nistered) [facility] Allergies Includes: Active, inactive, and resolved AllergiesNo Known Allergies Encounters Includes: Encounters from 06/21/2020 through 06/21/2021 Encounter Provider Location Date Check-In Time Check-Out Time D iagnosis ANNUAL PE-followup exam/30 Tatiana Martel [facility] 06/21/2021 2:40PM 3:38PM Essential Hypertensi on, Routine History and Physical Adult (18 - 64 Yrs), Perimenopause, Shoulder Strain Deltoid Muscle sick visit Ca Alegria MD [facility] 0 11/02/2020 3:43PM 4:23PM Mycoplasma Pneumoniae (Prima ry Atypical) Insurance Includes: Active Insurance Policies Plan Name Member ID Group # Subscriber Relationship Effective Da gary 1 - [facility] [id number] Anabel Mg Self 04/08/2018 - Unknown Advance Directives Includes: Current Advance DirectivesNo Advance Directives Recorded Health Concerns Includes: Active Health ConcernsNo Active Health Concerns Recorded Goals Includes: Active GoalsNo Active Goals Recorded Interventions Includes: Interventions for active GoalsNo Interventions Recorded Evaluations & Outcomes Includes: Evaluations & Outcomes for active GoalsNo Outcomes Recorded
[2021-08-26] MEDS ORDERED: fentaNYL 100 MCG/2 ML INJECTION (J3010) As Ordered ONE (12:35)
[2021-08-26] MEDS ORDERED: LIDOCAINE 2% 100MG/5ML SDV (FOR ANES.) As Ordered ONE (12:46)
[2021-08-26] MEDS ORDERED: propofoL 200 MG/20 ML VIAL As Ordered ONE (12:46)
--- NOTE | 2021-08-26 12:57 | ROOR ---
Patient Name: Anabel Mg Procedure Date: 08/26/2021 12:45 PM Date of : 1965 Age: 56 Room: [facility] Gender: Female Note Status: Finalized Procedure: Upper GI endoscopy Indications: Dyspepsia, Suspected esophageal reflux Providers: Yung Zaidi Jr, MD Referring MD: GISELLE BULLARD MD Requesting Provider: Medicines: Propofol per Anesthesia Complications: No immediate complications. Procedure: Pre-Anesthesia Assessment: - Prior to the procedure, a History and Physical was performed, and patient medications and allergies were reviewed. The patient is competent. The risks and benefits of the procedure and the sedation options and risks were discussed with the patient. All questions were answered and informed consent was obtained. Patient identification and proposed procedure were verified by the physician and the nurse in the pre-procedure area and in the procedure room. Mental Status Examination: alert and oriented. Airway Examination: normal oropharyngeal airway and neck mobility. Respiratory Examination: clear to auscultation. CV Examination: normal. ASA Grade Assessment: II - A patient with mild systemic disease. After reviewing the risks and benefits, the patient was deemed in satisfactory condition to undergo the procedure. The anesthesia plan was to use moderate sedation / analgesia (conscious sedation). Immediately prior to administration of medications, the patient was re-assessed for adequacy to receive sedatives. The heart rate, respiratory rate, oxygen saturations, blood pressure, adequacy of pulmonary ventilation, and response to care were monitored throughout the procedure. The physical status of the patient was re-assessed after the procedure. The Endoscope was introduced through the mouth, and advanced to the second part of duodenum. The upper GI endoscopy was accomplished without difficulty. The patient tolerated the procedure well. Findings: The upper third of the esophagus, middle third of the esophagus and lower third of the esophagus were normal. The gastroesophageal junction, cardia, gastric fundus, gastric antrum, prepyloric region of the stomach and pylorus were normal. Biopsies were taken with a cold forceps for histology. Localized moderate inflammation characterized by congestion (edema), erythema and shallow ulcerations was found in the gastric body. The duodenal bulb, first portion of the duodenum and second portion of the duodenum were normal. Impression: - Normal upper third of esophagus, middle third of esophagus and lower third of esophagus. - Normal gastroesophageal junction, cardia, gastric fundus, antrum, prepyloric region of the stomach and pylorus. Biopsied. - Gastritis. - Normal duodenal bulb, first portion of the duodenum and second portion of the duodenum. Recommendation: - Discharge patient to home (ambulatory). - Return to my office as previously scheduled. Procedure Code(s): --- Professional --- 98136, Esophagogastroduodenoscopy, flexible, transoral; with biopsy, single or multiple Diagnosis Code(s): --- Professional --- K29.70, Gastritis, unspecified, without bleeding R10.13, Epigastric pain CPT copyright 2019 [employer]. All rights reserved. The codes documented in this report are preliminary and upon rig site engineer review may be revised to meet current compliance requirements. Yung Zaidi MD Yung Zaidi Jr, MD 08/26/2021 12:56:33 PM Electronically signed by Yung Zaidi Jr, MD Number of Addenda: 0 Note Initiated On: 08/26/2021 12:45 PM Estimated Blood Loss: Estimated blood loss: none.
--- NOTE | 2021-08-26 13:06 | ROOR ---
Patient Name: Anabel Mg Procedure Date: 08/26/2021 12:46 PM Date of : 1965 Age: 56 Room: [facility] Gender: Female Note Status: Finalized Procedure: Colonoscopy Indications: Positive Cologuard test Providers: Yung Zaidi Jr, MD Referring MD: GISELLE BULLARD MD Requesting Provider: Medicines: Propofol per Anesthesia Complications: No immediate complications. Procedure: Pre-Anesthesia Assessment: - Prior to the procedure, a History and Physical was performed, and patient medications and allergies were reviewed. The patient is competent. The risks and benefits of the procedure and the sedation options and risks were discussed with the patient. All questions were answered and informed consent was obtained. Patient identification and proposed procedure were verified by the physician and the nurse in the pre-procedure area and in the procedure room. Mental Status Examination: alert and oriented. Airway Examination: normal oropharyngeal airway and neck mobility. Respiratory Examination: clear to auscultation. CV Examination: normal. ASA Grade Assessment: II - A patient with mild systemic disease. After reviewing the risks and benefits, the patient was deemed in satisfactory condition to undergo the procedure. The anesthesia plan was to use moderate sedation / analgesia (conscious sedation). Immediately prior to administration of medications, the patient was re-assessed for adequacy to receive sedatives. The heart rate, respiratory rate, oxygen saturations, blood pressure, adequacy of pulmonary ventilation, and response to care were monitored throughout the procedure. The physical status of the patient was re-assessed after the procedure. The Colonoscope was introduced through the anus and advanced to the cecum, identified by appendiceal orifice and ileocecal valve. The colonoscopy was performed without difficulty. The patient tolerated the procedure well. The quality of the bowel preparation was adequate. Findings: The rectum, recto-sigmoid colon, sigmoid colon, descending colon, transverse colon, ascending colon, cecum, appendiceal orifice and ileocecal valve appeared normal. Impression: - The rectum, recto-sigmoid colon, sigmoid colon, descending colon, transverse colon, ascending colon, cecum, appendiceal orifice and ileocecal valve are normal. - No specimens collected. Recommendation: - Discharge patient to home (ambulatory). Procedure Code(s): --- Professional --- 21698, Colonoscopy, flexible; diagnostic, including collection of specimen(s) by brushing or washing, when performed (separate procedure) Diagnosis Code(s): --- Professional --- R19.5, Other fecal abnormalities CPT copyright 2019 [employer]. All rights reserved. The codes documented in this report are preliminary and upon sail lay out worker review may be revised to meet current compliance requirements. Yung Zaidi MD Yung Zaidi Jr, MD 08/26/2021 1:06:10 PM Electronically signed by Yung Zaidi Jr, MD Number of Addenda: 0 Note Initiated On: 08/26/2021 12:46 PM Estimated Blood Loss: Estimated blood loss: none.
[2021-08-26 13:30] VITALS: BP 118/74
== END 2021-08-26 13:41 | disposition home or self-care (01) ==
LOC: M OPP 11:47
PROVIDERS: ATTEND Surgery
DX: R19.5 Other fecal abnormalities (principal); K29.70 Gastritis, unspecified, without bleeding; R10.13 Epigastric pain; I67.1 Cerebral aneurysm, nonruptured; Z79.899 Other long term (current) drug therapy
CPT/HCPCS: 43239; 45378; 88305; J3010

== ENCOUNTER 2025-05-02 14:19 | Emergency (ER) | payer OTHER ==
[~2025-05-02] VITALS: Ht 152.4 cm; Wt 54.5 kg
[~2025-05-02 14:19] MED LIST changes: -NS 1,000 ML IV ONE
[2025-05-02] MEDS ORDERED: PANT40TA29 (14:28)
[2025-05-02] MEDS: ACETAMINOPHEN 325 MG TAB PO ONE (16:39)
[2025-05-02 17:04] VITALS: BP 156/79; TEMP 97.9; O2SAT 97
== END 2025-05-02 17:31 | disposition home or self-care (01) ==
LOC: M ED 14:19
DX: S82.831A Other fracture of upper and lower end of right fibula, initial encounter for closed fracture (principal); V00.848A Other accident with standing micro-mobility pedestrian conveyance, initial encounter; Y92.9 Unspecified place or not applicable; Y93.9 Activity, unspecified; Y99.9 Unspecified external cause status; I10 Essential (primary) hypertension; F17.290 Nicotine dependence, other tobacco product, uncomplicated; Z86.79 Personal history of other diseases of the circulatory system; Z79.899 Other long term (current) drug therapy